=== PATIENT | male | born 1965 | race Caucasian/White ===

== ENCOUNTER 2016-09-09 17:30 | Inpatient (IN) | payer SELFPAY ==
--- NOTE | 2016-09-09 17:43 | DR.H&P ---
H&P - History & Physical for Day of: H&P Date: 09/09/16 - Chief Complaint Chief Complaint: right facial pain, redness and swelling after insect bite - Allergies Allergies/Adverse Reactions: Allergies Allergy/AdvReac Type Severity Reaction Status Date / Time No Known Drug Allergy Allergy Verified 04/06/16 14:52 - History of Present Illness History of Present Illness: the patient is a 51-year-old white male who was a direct admit from Dr. Benito's office after presenting with complaints of right cheek pain with redness and swelling onset 2 days. Patient stated onset of symptoms were after an insect bite. Patient complains of low-grade grade fever and headache nausea and vomiting which started today. plan to admit obtain labs, ct face, iv atbx therapy, pain and nausea control - Past Medical History Past Medical History: Diabetes, Hypothyroidism Additional Medical History: sarcoidosis - Past Surgical History Surgical History: Abdominal Surgery - Family History Family Medical History: Cancer - Social History Does patient currently use any type of tobacco product: No Have you used tobacco products in the last 12 months: No Type of Tobacco Use: None Does any household member use tobacco: No Alcohol Use: None Drug Use: None - Review of Systems Constitutional: Fever, Chills Eyes: denies: Pain, Vision Change, Conjunctivae Inflammation ENT: Ear Pain Respiratory: No Symptoms Reported Cardiovascular: No Symptoms Reported Gastrointestinal: Nausea, Vomiting Genitourinary: No Symptoms Reported Musculoskeletal: Back Pain, Leg Pain Skin: Wound (infected insect bite to right cheek) Neurological: No Symptoms Reported - Physical Exam Vital Signs: Blood Pressure [Left Arm] 129/78 Blood Pressure [Right Arm] 118/78 Blood Pressure 118/78 Oriented: Normal Eyes: Normal Ear: Right (mildly cloudy TM) Nose: Normal Throat: Normal Respiratory: RLL Diminished, LLL Diminished Cardiovascular: Normal Auscultation: Bowel Sounds: Normal Tenderness: Normal Skin: Red (3cm x 3 cm area of redness, firm mass with inrease warmth and severely tender), Tender, Hot Musculoskeletal: Back:Lumbar Psychiatric: Anxiety Speech Pattern: Clear, Appropriate - Assessment/Plan (1) Facial abscess Status: Acute Plan: facial cellulitis. admit, IV ATBX, BLOOD CULTURES CBC CMP ON ADMISSION. PAIN AND NAUSEA CONTROL. CT FACIAL BONES, BLOOD SUGAR CONTROL. REPEAT AM LABS (2) Diabetes mellitus, type 2 Qualifiers: Diabetes mellitus complication status: D Diabetes mellitus complication detail: D Diabetic retinopathy severity: D Proliferative retinopathy type: P Diabetes mellitus macular edema: D Diabetes mellitus residential insulin use : D Laterality: L Chronic kidney disease stage: C Status: Chronic (3) GERD (gastroesophageal reflux disease) Qualifiers: Esophagitis presence: with esophagitis Qualified Code(s): K21.0 - Gastro- esophageal reflux disease with esophagitis Status: Chronic (4) Sarcoidosis Status: Chronic
[2016-09-09 18:55] LABS: BASOPHILS % (AUTO) 0.4 % (0.2-1.0); EOSINOPHILS # (AUTO) 0.2 x10^3/uL (0.0-0.2); EOSINOPHILS % (AUTO) 2.4 % (0.9-2.9); HEMATOCRIT 42.5 % (42.0-54.0); HEMOGLOBIN 14.3 g/dL (13.5-18.0); LYMPHOCYTES # (AUTO) 1.4 X10^3/uL (1.3-2.9); LYMPHOCYTES % (AUTO) 22.3 % (21.0-51.0); MEAN CORPUSCULAR HEMOGLOBIN 30.4 pg (27.0-34.0); MEAN CORPUSCULAR HGB CONC 33.7 g/dL (33.0-35.0); MEAN CORPUSCULAR VOLUME 90.2 fL (80.0-100.0); MEAN PLATELET VOLUME 8.4 fL (7.4-11.0); MONOCYTES # (AUTO) 0.6 x10^3/uL (0.3-0.8); MONOCYTES % (AUTO) 9.7 % (0.0-13.0); NEUTROPHILS # (AUTO) 4.1 x10^3/uL (2.2-4.8); NEUTROPHILS % (AUTO) 65.2 % (42.0-75.0); PLATELET COUNT 159 X10^3/uL (150.0-450.0); RED BLOOD COUNT 4.71 X10^6/uL (4.7-6.0); RED CELL DISTRIBUTION WIDTH 14.2 % (11.6-16.5); WHITE BLOOD COUNT 6.3 X10^3/uL (3.6-10.0)
[2016-09-09 19:04] LABS: ALANINE AMINOTRANSFERASE 50 Units/L (12-78); ALBUMIN 3.9 g/dL (3.4-5.0); ALKALINE PHOSPHATASE 86 Units/L (46-116); ASPARTATE AMINO TRANSFERASE 25 Units/L (15-37); BLOOD UREA NITROGEN 12 mg/dL (7-18); CALCIUM 9.4 mg/dL (8.5-10.1); CARBON DIOXIDE 25.6 mmol/L (21-32); CHLORIDE 101 mmol/L (98-107); COR NA(FOR HYPERGLY) 140 mmol/L (136-145); CREATININE 1.03 mg/dL (0.70-1.30); GLUCOSE 272 mg/dL (65-99); SODIUM 136 mmol/L (136-145); TOTAL PROTEIN 8.1 g/dL (6.4-8.2); eGFR BLACK RACES > 60 (>60); eGFR NON BLACK RACES > 60 (>60)
[2016-09-09] MEDS: ROCEPHIN VIAL 1 GM 1 GM in NS 50 ML IV + SPIKE MINIBAG* 50 ML IV SCH (19:04)
[2016-09-09] MEDS: NS 1000 ML 1,000 ML IV SCH (19:04)
[2016-09-09] MEDS: PERCOCET TAB 5/325 MG PO PRN (19:52)
[2016-09-09] MEDS: CLEOCIN 300 MG IV PREMIX 300 MG/50 ML BAG IV SCH ×2 (20:00→23:50)
[2016-09-09] MEDS: SNACK - Diabetic Appropriate PO SCH (20:00)
[2016-09-09] MEDS ORDERED: NS 100 ML IV 100 ML IV ONE (20:44)
[2016-09-09] MEDS: HumuLIN R SUBCUT PRN (21:29)
--- NOTE | 2016-09-09 22:06 | CT ---
CT face with contrast Indication: Right cheek cellulitis, swelling after insect bite Comparison: CT neck 09/11/2015 Technique: CT images of the face were obtained after IV contrast administration. Automatic exposure control was utilized. Findings: There is focal skin thickening with underlying subcutaneous stranding of the right cheek. No discrete collection or significant deep tissue stranding is appreciated. No adenopathy appreciate d. The visualized portions of the brain are grossly unremarkable. The visualized paranasal sinuses and left-sided mastoid air cells are clear. There is patchy opacification of the right-sided mastoid air cells. The middle ears are clear. Impression: Cellulitis of the right cheek, without evidence for abscess. Patchy opacification of the right mastoid air cells. Correlation for mastoiditis recommended. Reported By:
[2016-09-10 02:11] LABS: BILIRUBIN,URINE NEGATIVE (NEGATIVE); BLOOD/HEMOGLOBIN,URINE NEGATIVE (NEGATIVE); GLUCOSE, URINE 4+ (NEGATIVE); KETONES,URINE NEGATIVE (NEGATIVE); LEUKOCYTE ESTERASE ,URINE NEGATIVE (NEGATIVE); NITRITES,URINE NEGATIVE (NEGATIVE); PROTEIN,URINE NEGATIVE (NEGATIVE); UROBILINOGEN,URINE NORMAL (NORMAL)
[2016-09-10 02:19] LABS: APPEARANCE,URINE CLEAR (CLEAR); BACTERIA,URINE NEGATIVE /HPF (NEGATIVE); COLOR,URINE YELLOW (YELLOW); RBC,URINE NONE SEEN /HPF (NEGATIVE); SQUAMOUS EPITHELIAL CELL,UR RARE /HPF (NEGATIVE)
[2016-09-10] MEDS: PERCOCET TAB 5/325 MG PO PRN ×4 (02:19→22:33)
[2016-09-10 05:20] LABS: BASOPHILS % (AUTO) 0.7 % (0.2-1.0); EOSINOPHILS # (AUTO) 0.2 x10^3/uL (0.0-0.2); EOSINOPHILS % (AUTO) 3.4 % (0.9-2.9); HEMATOCRIT 39.2 % (42.0-54.0); HEMOGLOBIN 13.3 g/dL (13.5-18.0); LYMPHOCYTES # (AUTO) 1.6 X10^3/uL (1.3-2.9); LYMPHOCYTES % (AUTO) 28.6 % (21.0-51.0); MEAN CORPUSCULAR HEMOGLOBIN 30.7 pg (27.0-34.0); MEAN CORPUSCULAR HGB CONC 33.9 g/dL (33.0-35.0); MEAN CORPUSCULAR VOLUME 90.5 fL (80.0-100.0); MEAN PLATELET VOLUME 8.8 fL (7.4-11.0); MONOCYTES # (AUTO) 0.5 x10^3/uL (0.3-0.8); MONOCYTES % (AUTO) 9.1 % (0.0-13.0); NEUTROPHILS # (AUTO) 3.2 x10^3/uL (2.2-4.8); NEUTROPHILS % (AUTO) 58.2 % (42.0-75.0); PLATELET COUNT 143 X10^3/uL (150.0-450.0); RED BLOOD COUNT 4.33 X10^6/uL (4.7-6.0); RED CELL DISTRIBUTION WIDTH 14.1 % (11.6-16.5); WHITE BLOOD COUNT 5.5 X10^3/uL (3.6-10.0)
[2016-09-10 05:24] LABS: ALBUMIN 3.3 g/dL (3.4-5.0); ALKALINE PHOSPHATASE 76 Units/L (46-116); BLOOD UREA NITROGEN 15 mg/dL (7-18); CALCIUM 8.5 mg/dL (8.5-10.1); CARBON DIOXIDE 26.2 mmol/L (21-32); CHLORIDE 100 mmol/L (98-107); COR CA(FOR HYPOALB) 9.1 mg/dL (8.5-10.1); COR NA(FOR HYPERGLY) 141 mmol/L (136-145); CREATININE 1.11 mg/dL (0.70-1.30); GLUCOSE 296 mg/dL (65-99); SODIUM 136 mmol/L (136-145); TOTAL PROTEIN 7.1 g/dL (6.4-8.2); eGFR BLACK RACES > 60 (>60); eGFR NON BLACK RACES > 60 (>60)
[2016-09-10 05:56] LABS: ALANINE AMINOTRANSFERASE 46 Units/L (12-78); ASPARTATE AMINO TRANSFERASE 24 Units/L (15-37)
[2016-09-10] MEDS: HumuLIN R SUBCUT PRN ×4 (06:21→21:16)
[2016-09-10] MEDS: CLEOCIN 300 MG IV PREMIX 300 MG/50 ML BAG IV SCH ×3 (06:21→21:11)
[2016-09-10] MEDS: ROCEPHIN VIAL 1 GM 1 GM in NS 50 ML IV + SPIKE MINIBAG* 50 ML IV SCH (09:04)
[2016-09-10] MEDS: NS 1000 ML 1,000 ML IV SCH ×2 (11:23→23:19)
--- NOTE | 2016-09-10 13:13 | PCM.PROG ---
Progress Note - Progress Note for Day of Date: 09/10/16 - Subjective Subjective: redness and swelling improving to right side of face. pt co itching. plan to continue iv atbx for 24 hrs then d/c home on po antibiotics - Past Medical Family Social History Past Med/Fam/Surg Hx: No changes since H&P Allergies: Allergies No Known Drug Allergy Allergy (Verified 04/06/16 14:52) - Review of Systems ROS: No change since H&P - Vital Signs and I&O's Vital Signs: Temperature 98.2 F Pulse Rate [Left Brachial] 61 Respiratory Rate 20 Blood Pressure [Left Arm] 121/83 Blood Pressure [Right Arm] 118/78 Blood Pressure 118/78 O2 Sat by Pulse Oximetry 93 Intake and Output: Intake & Output 09/08/16 09/09/16 09/10/16 09/11/16 11:59 11:59 11:59 11:59 Intake Total 3790 Balance 3790 - Physical Exam Oriented: Normal Eyes: Normal Ear: Right (mildly cloudy TM) Nose: Normal Throat: Normal Cardiovascular: Normal Auscultation: Bowel Sounds: Normal Tenderness: Normal Skin: Red (3cm x 3 cm area of redness, firm mass with inrease warmth and severely tender), Tender, Hot Musculoskeletal: Back:Lumbar Psychiatric: Anxiety Speech Pattern: Clear, Appropriate - Laboratory and Diagnostics Result Diagrams: 09/10/16 03:40 09/10/16 03:40 Labs: Laboratory WBC 5.5 X10^3/uL (3.6-10.0) 09/10/16 03:40 RBC 4.33 X10^6/uL (4.7-6.0) L 09/10/16 03:40 Hgb 13.3 g/dL (13.5-18.0) L 09/10/16 03:40 Hct 39.2 % (42.0-54.0) L 09/10/16 03:40 MCV 90.5 fL (80.0-100.0) 09/10/16 03:40 MCH 30.7 pg (27.0-34.0) 09/10/16 03:40 MCHC 33.9 g/dL (33.0-35.0) 09/10/16 03:40 RDW 14.1 % (11.6-16.5) 09/10/16 03:40 Plt Count 143 X10^3/uL (150.0-450.0) L 09/10/16 03:40 MPV 8.8 fL (7.4-11.0) 09/10/16 03:40 Neut % 58.2 % (42.0-75.0) 09/10/16 03:40 Lymph % 28.6 % (21.0-51.0) 09/10/16 03:40 [place] % 9.1 % (0.0-13.0) 09/10/16 03:40 Eos % 3.4 % (0.9-2.9) H 09/10/16 03:40 Baso % 0.7 % (0.2-1.0) 09/10/16 03:40 Neut # 3.2 x10^3/uL (2.2-4.8) 09/10/16 03:40 Lymph # 1.6 X10^3/uL (1.3-2.9) 09/10/16 03:40 [place] # 0.5 x10^3/uL (0.3-0.8) 09/10/16 03:40 Eos # 0.2 x10^3/uL (0.0-0.2) 09/10/16 03:40 Baso # 0.0 X10^3/uL (0.0-0.1) 09/10/16 03:40 Absolute Nucleated RBC 0.1 /100WBC 09/10/16 03:40 Sodium 136 mmol/L (136-145) 09/10/16 03:40 Corrected Sodium 141 mmol/L (136-145) 09/10/16 03:40 Potassium 3.9 mmol/L (3.5-5.1) 09/10/16 03:40 Chloride 100 mmol/L (98-107) 09/10/16 03:40 Carbon Dioxide 26.2 mmol/L (21-32) 09/10/16 03:40 BUN 15 mg/dL (7-18) 09/10/16 03:40 Creatinine 1.11 mg/dL (0.70-1.30) 09/10/16 03:40 Est GFR (MDRD) Af Amer > 60 (>60) 09/10/16 03:40 Est GFR (MDRD) Non-Af > 60 (>60) 09/10/16 03:40 Glucose 296 mg/dL (65-99) H 09/10/16 03:40 Calcium 8.5 mg/dL (8.5-10.1) 09/10/16 03:40 Corrected Calcium 9.1 mg/dL (8.5-10.1) 09/10/16 03:40 Total Bilirubin 0.40 mg/dL (0.2-1.0) 09/10/16 03:40 AST 24 Units/L (15-37) 09/10/16 03:40 ALT 46 Units/L (12-78) 09/10/16 03:40 Alkaline Phosphatase 76 Units/L (46-116) 09/10/16 03:40 Total Protein 7.1 g/dL (6.4-8.2) 09/10/16 03:40 Albumin 3.3 g/dL (3.4-5.0) L 09/10/16 03:40 Globulin 3.8 g/dL (2.5-4.5) 09/10/16 03:40 Albumin/Globulin Ratio 0.9 Ratio (1.1-2.1) L 09/10/16 03:40 Specimen Type Clean catch urine 09/10/16 02:01 Urine Color Yellow (YELLOW) 09/10/16 02:01 Urine Appearance Clear (CLEAR) 09/10/16 02:01 Urine pH 5.0 (5.0 - 8.0) 09/10/16 02:01 Ur Specific [place] 1.015 (1.000-1.030) 09/10/16 02:01 Urine Protein Negative (NEGATIVE) 09/10/16 02:01 Urine Glucose (UA) 4+ (NEGATIVE) 09/10/16 02:01 Urine Ketones Negative (NEGATIVE) 09/10/16 02:01 Urine Occult Blood Negative (NEGATIVE) 09/10/16 02:01 Urine Nitrite Negative (NEGATIVE) 09/10/16 02:01 Urine Bilirubin Negative (NEGATIVE) 09/10/16 02:01 Urine Urobilinogen Normal (NORMAL) 09/10/16 02:01 Ur Leukocyte Esterase Negative (NEGATIVE) 09/10/16 02:01 Urine RBC None seen /HPF (NEGATIVE) 09/10/16 02:01 Urine WBC None seen /HPF (NEGATIVE) 09/10/16 02:01 Ur Squamous Epith Cells Rare /HPF (NEGATIVE) 09/10/16 02:01 Urine Bacteria Negative /HPF (NEGATIVE) 09/10/16 02:01 Ur Culture Indicated? No/not indicated 09/10/16 02:01 - Plan (1) Facial abscess Status: Acute Plan: continue IV atbx, repeat am labs. cultures pending, overall improving cellulitis (2) Diabetes mellitus, type 2 Status: Chronic Qualifiers: Diabetes mellitus complication status: D Diabetes mellitus complication detail: D Diabetic retinopathy severity: D Proliferative retinopathy type: P Diabetes mellitus macular edema: D Diabetes mellitus exterminator termite insulin use : D Laterality: L Chronic kidney disease stage: C (3) GERD (gastroesophageal reflux disease) Status: Chronic Qualifiers: Esophagitis presence: with esophagitis Qualified Code(s): K21.0 - Gastro- esophageal reflux disease with esophagitis (4) Sarcoidosis Status: Chronic
[2016-09-10] MEDS: VISTARIL PO PRN (13:41)
[2016-09-10] MEDS: SNACK - Diabetic Appropriate PO SCH (21:22)
[2016-09-11 05:51] LABS: BASOPHILS % (AUTO) 0.7 % (0.2-1.0); EOSINOPHILS # (AUTO) 0.2 x10^3/uL (0.0-0.2); EOSINOPHILS % (AUTO) 3.7 % (0.9-2.9); HEMATOCRIT 39.7 % (42.0-54.0); HEMOGLOBIN 13.3 g/dL (13.5-18.0); LYMPHOCYTES # (AUTO) 1.7 X10^3/uL (1.3-2.9); LYMPHOCYTES % (AUTO) 29.9 % (21.0-51.0); MEAN CORPUSCULAR HEMOGLOBIN 30.2 pg (27.0-34.0); MEAN CORPUSCULAR HGB CONC 33.6 g/dL (33.0-35.0); MEAN PLATELET VOLUME 8.6 fL (7.4-11.0); MONOCYTES # (AUTO) 0.5 x10^3/uL (0.3-0.8); MONOCYTES % (AUTO) 8.7 % (0.0-13.0); NEUTROPHILS # (AUTO) 3.2 x10^3/uL (2.2-4.8); PLATELET COUNT 162 X10^3/uL (150.0-450.0); RED BLOOD COUNT 4.41 X10^6/uL (4.7-6.0); RED CELL DISTRIBUTION WIDTH 13.9 % (11.6-16.5); WHITE BLOOD COUNT 5.6 X10^3/uL (3.6-10.0)
[2016-09-11 05:56] LABS: ALANINE AMINOTRANSFERASE 31 Units/L (12-78); ALBUMIN 3.2 g/dL (3.4-5.0); ALKALINE PHOSPHATASE 78 Units/L (46-116); ASPARTATE AMINO TRANSFERASE 15 Units/L (15-37); BLOOD UREA NITROGEN 14 mg/dL (7-18); CALCIUM 8.4 mg/dL (8.5-10.1); CARBON DIOXIDE 23.2 mmol/L (21-32); CHLORIDE 103 mmol/L (98-107); COR NA(FOR HYPERGLY) 141 mmol/L (136-145); CREATININE 1.07 mg/dL (0.70-1.30); GLUCOSE 256 mg/dL (65-99); SODIUM 137 mmol/L (136-145); TOTAL PROTEIN 7.2 g/dL (6.4-8.2); eGFR BLACK RACES > 60 (>60); eGFR NON BLACK RACES > 60 (>60)
[2016-09-11] MEDS: CLEOCIN 300 MG IV PREMIX 300 MG/50 ML BAG IV SCH ×2 (06:01→14:30)
[2016-09-11] MEDS: HumuLIN R SUBCUT PRN ×3 (06:45→20:59)
[2016-09-11] MEDS: PERCOCET TAB 5/325 MG PO PRN ×3 (08:58→21:44)
[2016-09-11] MEDS: ROCEPHIN VIAL 1 GM 1 GM in NS 50 ML IV + SPIKE MINIBAG* 50 ML IV SCH (08:58)
[2016-09-11] MEDS ORDERED: LEVAQUIN PREMIX IV 750 MG 750 MG/150 ML BAG IV ONE (09:27)
[2016-09-11] MEDS ORDERED: DEMEROL INJ IVP ONE (11:02)
--- NOTE | 2016-09-11 12:21 | PCM.DCPLAN ---
Addendum entered and electronically signed by ADELAIDE ARCHER 09/13/16 12:55: cancel /dc summary pt condition worsened and pt continue with inpt stay Original Note: Discharge Summary - Admission Date Date of Admission: 09/09/16 - Discharge Date Discharge Date: 09/11/16 - Admission Diagnoses (1) Facial abscess Status: Acute (2) Diabetes mellitus, type 2 Status: Chronic (3) GERD (gastroesophageal reflux disease) Status: Chronic (4) Sarcoidosis Status: Chronic - Discharge Diagnoses Discharge Diagnosis: SAME ADMISSION - Discharge Medications Discharge Medications: Cephalexin [Keflex Cap 500 mg] 500 mg PO BID #20 cap 09/11/16 [Rx] Sulfamethoxazole-Trimethoprim [BACTRIM DS TAB 800/160 MG *] 1 tab PO BID #20 tab 09/11/16 [Rx] - Hospital Course Vital Signs: Temperature 97.2 F Pulse Rate [Left Brachial] 64 Respiratory Rate 20 Blood Pressure [Left Arm] 129/77 Blood Pressure [Right Arm] 118/78 Blood Pressure 118/78 O2 Sat by Pulse Oximetry 94 Latest Lab Results: Laboratory Last Values WBC 5.6 X10^3/uL (3.6-10.0) 09/11/16 05:00 RBC 4.41 X10^6/uL (4.7-6.0) L 09/11/16 05:00 Hgb 13.3 g/dL (13.5-18.0) L 09/11/16 05:00 Hct 39.7 % (42.0-54.0) L 09/11/16 05:00 MCV 90.0 fL (80.0-100.0) 09/11/16 05:00 MCH 30.2 pg (27.0-34.0) 09/11/16 05:00 MCHC 33.6 g/dL (33.0-35.0) 09/11/16 05:00 RDW 13.9 % (11.6-16.5) 09/11/16 05:00 Plt Count 162 X10^3/uL (150.0-450.0) 09/11/16 05:00 MPV 8.6 fL (7.4-11.0) 09/11/16 05:00 Neut % 57.0 % (42.0-75.0) 09/11/16 05:00 Lymph % 29.9 % (21.0-51.0) 09/11/16 05:00 [place] % 8.7 % (0.0-13.0) 09/11/16 05:00 Eos % 3.7 % (0.9-2.9) H 09/11/16 05:00 Baso % 0.7 % (0.2-1.0) 09/11/16 05:00 Neut # 3.2 x10^3/uL (2.2-4.8) 09/11/16 05:00 Lymph # 1.7 X10^3/uL (1.3-2.9) 09/11/16 05:00 [place] # 0.5 x10^3/uL (0.3-0.8) 09/11/16 05:00 Eos # 0.2 x10^3/uL (0.0-0.2) 09/11/16 05:00 Baso # 0.0 X10^3/uL (0.0-0.1) 09/11/16 05:00 Absolute Nucleated RBC 0.1 /100WBC 09/11/16 05:00 Sodium 137 mmol/L (136-145) 09/11/16 05:00 Corrected Sodium 141 mmol/L (136-145) 09/11/16 05:00 Potassium 4.1 mmol/L (3.5-5.1) 09/11/16 05:00 Chloride 103 mmol/L (98-107) 09/11/16 05:00 Carbon Dioxide 23.2 mmol/L (21-32) 09/11/16 05:00 BUN 14 mg/dL (7-18) 09/11/16 05:00 Creatinine 1.07 mg/dL (0.70-1.30) 09/11/16 05:00 Est GFR (MDRD) Af Amer > 60 (>60) 09/11/16 05:00 Est GFR (MDRD) Non-Af > 60 (>60) 09/11/16 05:00 Glucose 256 mg/dL (65-99) H 09/11/16 05:00 Calcium 8.4 mg/dL (8.5-10.1) L 09/11/16 05:00 Corrected Calcium 9.0 mg/dL (8.5-10.1) 09/11/16 05:00 Total Bilirubin 0.30 mg/dL (0.2-1.0) 09/11/16 05:00 AST 15 Units/L (15-37) 09/11/16 05:00 ALT 31 Units/L (12-78) 09/11/16 05:00 Alkaline Phosphatase 78 Units/L (46-116) 09/11/16 05:00 Total Protein 7.2 g/dL (6.4-8.2) 09/11/16 05:00 Albumin 3.2 g/dL (3.4-5.0) L 09/11/16 05:00 Globulin 4.0 g/dL (2.5-4.5) 09/11/16 05:00 Albumin/Globulin Ratio 0.8 Ratio (1.1-2.1) L 09/11/16 05:00 Specimen Type Clean catch urine 09/10/16 02:01 Urine Color Yellow (YELLOW) 09/10/16 02:01 Urine Appearance Clear (CLEAR) 09/10/16 02:01 Urine pH 5.0 (5.0 - 8.0) 09/10/16 02:01 Ur Specific [place] 1.015 (1.000-1.030) 09/10/16 02:01 Urine Protein Negative (NEGATIVE) 09/10/16 02:01 Urine Glucose (UA) 4+ (NEGATIVE) 09/10/16 02:01 Urine Ketones Negative (NEGATIVE) 09/10/16 02:01 Urine Occult Blood Negative (NEGATIVE) 09/10/16 02:01 Urine Nitrite Negative (NEGATIVE) 09/10/16 02:01 Urine Bilirubin Negative (NEGATIVE) 09/10/16 02:01 Urine Urobilinogen Normal (NORMAL) 09/10/16 02:01 Ur Leukocyte Esterase Negative (NEGATIVE) 09/10/16 02:01 Urine RBC None seen /HPF (NEGATIVE) 09/10/16 02:01 Urine WBC None seen /HPF (NEGATIVE) 09/10/16 02:01 Ur Squamous Epith Cells Rare /HPF (NEGATIVE) 09/10/16 02:01 Urine Bacteria Negative /HPF (NEGATIVE) 09/10/16 02:01 Ur Culture Indicated? No/not indicated 09/10/16 02:01 Hospital Course: PATIENT IS A 51-YEAR-OLD WHITE MALE WITH A HISTORY OF DIABETES HIGH BLOOD PRESSURE AND SARCOIDOSIS THAT WAS ADMITTED ON friday FROM [facility]. [facility] OFFICE. pATIENT HAD NEW COMPLAINTS OF RIGHT CHEEK/FACIAL REDNESS AND SWELLING AFTER INSECT BITE. pATIENT WAS ADMITTED WITH ADMISSION LABS BLOOD CULTURES AND ct OF THE FACE WHICH REVEALED NO LOCALIZED ABSCESS, ACUTE RIGHT MAXILLARY SINUSITIS. pATIENT PATIENT WAS TREATED WITH iv CLINDAMYCIN AND rOCEPHIN WITH IMPROVEMENT OF REDNESS AND IMPROVEMENT OF SWELLING BUT NOT COMPLETELY RESOLVED TODAY. dUE TO AFEBRILE STATUS STABLE WHITE BLOOD COUNT AND IMPROVED REDNESS PLAN TO DISCHARGE PATIENT HOME TO RESUME HOME MEDICATION pAo2 bACTRIM AND kEFLEX. pATIENT STRAIGHT TO FOLLOW A LOW-CARB DIET AND STRICT SUGAR MONITORING. pATIENT INSTRUCTED TO HAVE GOOD HYGIENE AND AND RETURN TO OFFICE IF PATIENT DEVELOPS A FEVER OR ANY CHANGE OR WORSENING SYMPTOMS. pATIENT CURRENTLY HAS A PRESCRIPTION FOR PAIN MEDICATION AT HOME AND INSTRUCTED TO CONTINUE THAT. pATIENT IS TO SEE PRIMARY CARE IN OFFICE IN 1 WEEK. pATIENT DID RECEIVE A DOSE OF lEVAQUIN 750 iv THIS MORNING PRIOR TO DISCHARGE. - Discharge Plan Disposition: HOME, SELF-CARE Condition: Stable Prescriptions: Cephalexin [Keflex Cap 500 mg] 500 mg PO BID #20 cap Sulfamethoxazole-Trimethoprim [BACTRIM DS TAB 800/160 MG *] 1 tab PO BID #20 tab - Follow ups/Referrals Follow ups/Referrals: ADELAIDE ARCHER [Primary Care Provider] - 09/16/16 2:45 pm - Instructions Instructions: Type 2 Diabetes Mellitus, Adult, Form - Daily Diabetes Record, Wound Check, Cellulitis, [id number], Cephalexin tablets or capsules, Sulfamethoxazole; Trimethoprim, SMX-[id number] tablets Additional Instructions: warm compress to affected area continue po antibiotics use antibacterial soap follow up with dr georges in one week strict low carb diet and blood sugar control Forms: Patient Portal
[2016-09-11] MEDS ORDERED: ZOSYN VIAL 4.5 GM IV SCH (15:25)
[2016-09-11] MEDS: NS 1000 ML 1,000 ML IV SCH (15:49)
[2016-09-11] MEDS ORDERED: NS 100 ML IV + SPIKE MINIBAG* 100 ML IV ONE (15:54)
[2016-09-11] MEDS ORDERED: CONSULT PHARMACY - ANTIBIOTIC XX SCH (17:00)
[2016-09-11] MEDS ORDERED: NS 100 ML IV 100 ML IV ONE (17:25)
--- NOTE | 2016-09-11 17:56 | CT ---
CT face with contrast Indication: Facial swelling Comparison: CT face with contrast 09/09/2016 Technique: CT images of the face were obtained after IV contrast administration. Automatic exposure control was utilized. Findings: Skin thickening with associated subcutaneous stranding of the right cheek appears mildly w orsened. There is no discrete collection to suggest abscess. There is no significant deep soft tissu e edema. No adenopathy identified. The major paranasal sinuses are clear. Patchy right mastoid air cell opacification is unchanged. The visualized brain demonstrates no significant abnormality. The jugular veins and carotid arteries ar e patent. Impression: 1. Mildly worsened right-sided facial cellulitis without evidence for abscess. 2. Patchy right mastoid air cell opacification, unchanged. Reported By:
[2016-09-11] MEDS: MORPHINE SULFATE INJ 2 MG IVP PRN (19:29)
[2016-09-11] MEDS ORDERED: VANCOMYCIN HCL 1 GM VIAL IV SCH (21:00)
[2016-09-11] MEDS ORDERED: VANCOMYCIN 1 GM IV SCH (21:00)
[2016-09-11] MEDS: SNACK - Diabetic Appropriate PO SCH (21:05)
[2016-09-11] MEDS: LACTINEX GRANULES PO SCH (21:05)
[2016-09-11] MEDS: AMBIEN PO PRN (21:39)
[2016-09-11] MEDS: CLEOCIN VIAL 600 MG 900 MG in D5W 50 ML IV 50 ML IV SCH (22:55)
[2016-09-12] MEDS: MAXIPIME 2 GM in NS 100 ML IV + SPIKE MINIBAG* 100 ML IV SCH ×4 (00:40→21:25)
[2016-09-12] MEDS: CLEOCIN VIAL 600 MG 900 MG in D5W 50 ML IV 50 ML IV SCH ×2 (04:37→13:59)
[2016-09-12] MEDS: MORPHINE SULFATE INJ 2 MG IVP PRN ×4 (04:41→22:15)
[2016-09-12] MEDS: NS 1000 ML 1,000 ML IV SCH ×2 (04:48→18:11)
[2016-09-12 05:20] LABS: EOSINOPHILS # (AUTO) 0.2 x10^3/uL (0.0-0.2); HEMOGLOBIN 12.6 g/dL (13.5-18.0); LYMPHOCYTES # (AUTO) 1.4 X10^3/uL (1.3-2.9); LYMPHOCYTES % (AUTO) 33.9 % (21.0-51.0); MEAN CORPUSCULAR HEMOGLOBIN 30.4 pg (27.0-34.0); MEAN CORPUSCULAR VOLUME 89.3 fL (80.0-100.0); MEAN PLATELET VOLUME 8.5 fL (7.4-11.0); MONOCYTES # (AUTO) 0.4 x10^3/uL (0.3-0.8); MONOCYTES % (AUTO) 10.3 % (0.0-13.0); NEUTROPHILS # (AUTO) 2.1 x10^3/uL (2.2-4.8); NEUTROPHILS % (AUTO) 49.8 % (42.0-75.0); PLATELET COUNT 155 X10^3/uL (150.0-450.0); RED BLOOD COUNT 4.15 X10^6/uL (4.7-6.0); RED CELL DISTRIBUTION WIDTH 14.2 % (11.6-16.5); WHITE BLOOD COUNT 4.2 X10^3/uL (3.6-10.0)
[2016-09-12 05:36] LABS: ALANINE AMINOTRANSFERASE 33 Units/L (12-78); ALKALINE PHOSPHATASE 75 Units/L (46-116); BLOOD UREA NITROGEN 14 mg/dL (7-18); CALCIUM 8.3 mg/dL (8.5-10.1); CARBON DIOXIDE 23.8 mmol/L (21-32); CHLORIDE 103 mmol/L (98-107); COR CA(FOR HYPOALB) 9.1 mg/dL (8.5-10.1); COR NA(FOR HYPERGLY) 140 mmol/L (136-145); GLUCOSE 233 mg/dL (65-99); SODIUM 137 mmol/L (136-145); TOTAL PROTEIN 6.9 g/dL (6.4-8.2); eGFR BLACK RACES > 60 (>60); eGFR NON BLACK RACES > 60 (>60)
[2016-09-12] MEDS: LACTINEX GRANULES PO SCH ×3 (05:47→21:25)
[2016-09-12] MEDS: HumuLIN R SUBCUT PRN ×4 (05:51→21:30)
[2016-09-12 05:53] LABS: ASPARTATE AMINO TRANSFERASE 25 Units/L (15-37)
[2016-09-12] MEDS ORDERED: GLUCOPHAGE PO SCH (09:00)
[2016-09-12 09:44] VITALS: BMI 34.4
[2016-09-12] MEDS: PERCOCET TAB 5/325 MG PO PRN ×2 (10:22→21:26)
[2016-09-12] MEDS: NS IV SCH ×2 (10:22→21:28)
[2016-09-12] MEDS: VANCOMYCIN HCL IV SCH ×2 (10:22→21:28)
[2016-09-12] MEDS ORDERED: LEVEMIR SC ONE (11:00)
[2016-09-12] MEDS: NORCO 10/325 TAB PO PRN (15:54)
[2016-09-12] MEDS: REGLAN TAB 10 MG PO SCH (15:55)
[2016-09-12] MEDS: VISTARIL PO PRN (21:24)
[2016-09-12] MEDS: SNACK - Diabetic Appropriate PO SCH (21:26)
[2016-09-12] MEDS: AMBIEN PO PRN (21:26)
[2016-09-12] MEDS: LEVEMIR SC SCH (21:29)
[2016-09-13] MEDS: CLEOCIN VIAL 600 MG 900 MG in D5W 50 ML IV 50 ML IV SCH ×4 (00:21→21:14)
[2016-09-13 06:16] LABS: ALANINE AMINOTRANSFERASE 36 Units/L (12-78); ALBUMIN 3.1 g/dL (3.4-5.0); ALKALINE PHOSPHATASE 72 Units/L (46-116); ASPARTATE AMINO TRANSFERASE 17 Units/L (15-37); BLOOD UREA NITROGEN 12 mg/dL (7-18); CALCIUM 8.6 mg/dL (8.5-10.1); CARBON DIOXIDE 23.6 mmol/L (21-32); CHLORIDE 105 mmol/L (98-107); COR CA(FOR HYPOALB) 9.3 mg/dL (8.5-10.1); COR NA(FOR HYPERGLY) 142 mmol/L (136-145); CREATININE 0.93 mg/dL (0.70-1.30); GLUCOSE 184 mg/dL (65-99); SODIUM 140 mmol/L (136-145); TOTAL PROTEIN 6.8 g/dL (6.4-8.2); eGFR BLACK RACES > 60 (>60); eGFR NON BLACK RACES > 60 (>60)
[2016-09-13] MEDS: LACTINEX GRANULES PO SCH ×3 (06:21→21:16)
[2016-09-13] MEDS: MAXIPIME 2 GM in NS 100 ML IV + SPIKE MINIBAG* 100 ML IV SCH ×4 (06:22→21:10)
[2016-09-13 06:25] LABS: BASOPHILS % (AUTO) 1.2 % (0.2-1.0); EOSINOPHILS # (AUTO) 0.2 x10^3/uL (0.0-0.2); EOSINOPHILS % (AUTO) 5.4 % (0.9-2.9); HEMATOCRIT 37.1 % (42.0-54.0); HEMOGLOBIN 12.6 g/dL (13.5-18.0); LYMPHOCYTES # (AUTO) 1.5 X10^3/uL (1.3-2.9); LYMPHOCYTES % (AUTO) 43.1 % (21.0-51.0); MEAN CORPUSCULAR HEMOGLOBIN 30.3 pg (27.0-34.0); MEAN CORPUSCULAR VOLUME 88.9 fL (80.0-100.0); MEAN PLATELET VOLUME 8.6 fL (7.4-11.0); MONOCYTES # (AUTO) 0.3 x10^3/uL (0.3-0.8); MONOCYTES % (AUTO) 8.8 % (0.0-13.0); NEUTROPHILS # (AUTO) 1.5 x10^3/uL (2.2-4.8); NEUTROPHILS % (AUTO) 41.5 % (42.0-75.0); PLATELET COUNT 156 X10^3/uL (150.0-450.0); RED BLOOD COUNT 4.17 X10^6/uL (4.7-6.0); RED CELL DISTRIBUTION WIDTH 14.2 % (11.6-16.5); WHITE BLOOD COUNT 3.6 X10^3/uL (3.6-10.0)
[2016-09-13] MEDS: VANCOMYCIN HCL IV SCH ×2 (09:07→22:33)
[2016-09-13] MEDS: NS IV SCH ×2 (09:07→22:33)
[2016-09-13] MEDS: MORPHINE SULFATE INJ 2 MG IVP PRN (09:28)
[2016-09-13] MEDS: HumuLIN R SUBCUT PRN ×3 (12:32→21:19)
[2016-09-13] MEDS: NORCO 10/325 TAB PO PRN (12:32)
[2016-09-13] MEDS ORDERED: DEMEROL INJ IVP PRN (12:57)
[2016-09-13] MEDS ORDERED: MILK OF MAGNESIA PO PRN (12:58)
[2016-09-13] MEDS ORDERED: NORCO 10/325 TAB PO PRN (12:59)
[2016-09-13] MEDS ORDERED: TORADOL 15 MG VIAL IVP PRN (13:00)
--- NOTE | 2016-09-13 13:00 | PCM.PROG ---
Progress Note - Progress Note for Day of Date: 09/13/16 - Subjective Subjective: redness and swelling improving to right side of face. pt on vancomycin, cefepime and clindamycin. plan to continue pain control, repeat am labs - Past Medical Family Social History Past Med/Fam/Surg Hx: No changes since H&P Allergies: Allergies No Known Drug Allergy Allergy (Verified 04/06/16 14:52) - Review of Systems ROS: No change since H&P - Vital Signs and I&O's Vital Signs: Temperature 98.2 F Pulse Rate [Left Brachial] 50 Respiratory Rate 20 Blood Pressure [Left Arm] 111/59 Blood Pressure [Right Arm] 118/78 Blood Pressure 118/78 O2 Sat by Pulse Oximetry 94 Intake and Output: Intake & Output 09/11/16 09/12/16 09/13/16 09/14/16 11:59 11:59 11:59 11:59 Intake Total 5240 1520 2506 Balance 5240 1520 2506 - Physical Exam Oriented: Normal Eyes: Normal Ear: Right (mildly cloudy TM) Nose: Normal Throat: Normal Respiratory: Normal Cardiovascular: Normal Auscultation: Bowel Sounds: Normal Tenderness: Normal Skin: Red (3cm x 3 cm area of redness, firm mass with inrease warmth and severely tender), Tender, Hot Musculoskeletal: Back:Lumbar Psychiatric: Anxiety Speech Pattern: Clear, Appropriate - Laboratory and Diagnostics Result Diagrams: 09/13/16 04:40 09/13/16 04:40 Labs: 09/11/16 19:40 Blood Blood Culture - Preliminary 09/11/16 19:45 Blood Blood Culture - Preliminary 09/09/16 18:35 Blood Blood Culture - Preliminary 09/09/16 18:30 Blood Blood Culture - Preliminary Laboratory WBC 3.6 X10^3/uL (3.6-10.0) 09/13/16 04:40 RBC 4.17 X10^6/uL (4.7-6.0) L 09/13/16 04:40 Hgb 12.6 g/dL (13.5-18.0) L 09/13/16 04:40 Hct 37.1 % (42.0-54.0) L 09/13/16 04:40 MCV 88.9 fL (80.0-100.0) 09/13/16 04:40 MCH 30.3 pg (27.0-34.0) 09/13/16 04:40 MCHC 34.0 g/dL (33.0-35.0) 09/13/16 04:40 RDW 14.2 % (11.6-16.5) 09/13/16 04:40 Plt Count 156 X10^3/uL (150.0-450.0) 09/13/16 04:40 MPV 8.6 fL (7.4-11.0) 09/13/16 04:40 Neut % 41.5 % (42.0-75.0) L 09/13/16 04:40 Lymph % 43.1 % (21.0-51.0) 09/13/16 04:40 [place] % 8.8 % (0.0-13.0) 09/13/16 04:40 Eos % 5.4 % (0.9-2.9) H 09/13/16 04:40 Baso % 1.2 % (0.2-1.0) H 09/13/16 04:40 Neut # 1.5 x10^3/uL (2.2-4.8) L 09/13/16 04:40 Lymph # 1.5 X10^3/uL (1.3-2.9) 09/13/16 04:40 [place] # 0.3 x10^3/uL (0.3-0.8) 09/13/16 04:40 Eos # 0.2 x10^3/uL (0.0-0.2) 09/13/16 04:40 Baso # 0.0 X10^3/uL (0.0-0.1) 09/13/16 04:40 Absolute Nucleated RBC 0.2 /100WBC 09/13/16 04:40 Sodium 140 mmol/L (136-145) 09/13/16 04:40 Corrected Sodium 142 mmol/L (136-145) 09/13/16 04:40 Potassium 4.1 mmol/L (3.5-5.1) 09/13/16 04:40 Chloride 105 mmol/L (98-107) 09/13/16 04:40 Carbon Dioxide 23.6 mmol/L (21-32) 09/13/16 04:40 BUN 12 mg/dL (7-18) 09/13/16 04:40 Creatinine 0.93 mg/dL (0.70-1.30) 09/13/16 04:40 Est GFR (MDRD) Af Amer > 60 (>60) 09/13/16 04:40 Est GFR (MDRD) Non-Af > 60 (>60) 09/13/16 04:40 Glucose 184 mg/dL (65-99) H 09/13/16 04:40 Calcium 8.6 mg/dL (8.5-10.1) 09/13/16 04:40 Corrected Calcium 9.3 mg/dL (8.5-10.1) 09/13/16 04:40 Total Bilirubin 0.30 mg/dL (0.2-1.0) 09/13/16 04:40 AST 17 Units/L (15-37) 09/13/16 04:40 ALT 36 Units/L (12-78) 09/13/16 04:40 Alkaline Phosphatase 72 Units/L (46-116) 09/13/16 04:40 Total Protein 6.8 g/dL (6.4-8.2) 09/13/16 04:40 Albumin 3.1 g/dL (3.4-5.0) L 09/13/16 04:40 Globulin 3.7 g/dL (2.5-4.5) 09/13/16 04:40 Albumin/Globulin Ratio 0.8 Ratio (1.1-2.1) L 09/13/16 04:40 Specimen Type Clean catch urine 09/10/16 02:01 Urine Color Yellow (YELLOW) 09/10/16 02:01 Urine Appearance Clear (CLEAR) 09/10/16 02:01 Urine pH 5.0 (5.0 - 8.0) 09/10/16 02:01 Ur Specific [place] 1.015 (1.000-1.030) 09/10/16 02:01 Urine Protein Negative (NEGATIVE) 09/10/16 02:01 Urine Glucose (UA) 4+ (NEGATIVE) 09/10/16 02:01 Urine Ketones Negative (NEGATIVE) 09/10/16 02:01 Urine Occult Blood Negative (NEGATIVE) 09/10/16 02:01 Urine Nitrite Negative (NEGATIVE) 09/10/16 02:01 Urine Bilirubin Negative (NEGATIVE) 09/10/16 02:01 Urine Urobilinogen Normal (NORMAL) 09/10/16 02:01 Ur Leukocyte Esterase Negative (NEGATIVE) 09/10/16 02:01 Urine RBC None seen /HPF (NEGATIVE) 09/10/16 02:01 Urine WBC None seen /HPF (NEGATIVE) 09/10/16 02:01 Ur Squamous Epith Cells Rare /HPF (NEGATIVE) 09/10/16 02:01 Urine Bacteria Negative /HPF (NEGATIVE) 09/10/16 02:01 Ur Culture Indicated? No/not indicated 09/10/16 02:01 - Plan (1) Facial abscess Status: Acute Plan: continue IV atbx, repeat am labs, repeat. cultures pending, overall improving cellulitis (2) Diabetes mellitus, type 2 Status: Chronic Qualifiers: Diabetes mellitus complication status: D Diabetes mellitus complication detail: D Diabetic retinopathy severity: D Proliferative retinopathy type: P Diabetes mellitus macular edema: D Diabetes mellitus terminal manager insulin use : D Laterality: L Chronic kidney disease stage: C Plan: ssi, po hydration with water (3) GERD (gastroesophageal reflux disease) Status: Chronic Qualifiers: Esophagitis presence: with esophagitis Qualified Code(s): K21.0 - Gastro- esophageal reflux disease with esophagitis (4) Sarcoidosis Status: Chronic Plan: pain control holding methotrexate
[2016-09-13] MEDS: REGLAN TAB 10 MG PO SCH (16:30)
[2016-09-13] MEDS: DEMEROL INJ IVP PRN ×2 (17:41→21:28)
[2016-09-13 20:12] LABS: CREATININE 1.15 mg/dL (0.70-1.30); VANCOMYCIN,TROUGH 9.7 ug/mL (15-20)
[2016-09-13] MEDS ORDERED: COLACE CAP 100 MG PO SCH (21:00)
[2016-09-13] MEDS: LEVEMIR SC SCH (21:18)
[2016-09-13] MEDS: AMBIEN PO PRN (21:27)
[2016-09-13] MEDS: SNACK - Diabetic Appropriate PO SCH (22:43)
[2016-09-14] MEDS: CLEOCIN VIAL 600 MG 900 MG in D5W 50 ML IV 50 ML IV SCH ×2 (05:56→13:42)
[2016-09-14] MEDS: LACTINEX GRANULES PO SCH ×2 (05:59→15:05)
[2016-09-14] MEDS: HumuLIN R SUBCUT PRN ×2 (06:36→12:22)
[2016-09-14 06:51] LABS: BASOPHILS % (AUTO) 0.9 % (0.2-1.0); EOSINOPHILS # (AUTO) 0.2 x10^3/uL (0.0-0.2); HEMATOCRIT 38.4 % (42.0-54.0); HEMOGLOBIN 13.1 g/dL (13.5-18.0); LYMPHOCYTES # (AUTO) 1.4 X10^3/uL (1.3-2.9); LYMPHOCYTES % (AUTO) 33.8 % (21.0-51.0); MEAN CORPUSCULAR HEMOGLOBIN 30.4 pg (27.0-34.0); MEAN CORPUSCULAR HGB CONC 34.1 g/dL (33.0-35.0); MEAN PLATELET VOLUME 8.4 fL (7.4-11.0); MONOCYTES # (AUTO) 0.3 x10^3/uL (0.3-0.8); MONOCYTES % (AUTO) 7.8 % (0.0-13.0); NEUTROPHILS # (AUTO) 2.2 x10^3/uL (2.2-4.8); NEUTROPHILS % (AUTO) 53.5 % (42.0-75.0); PLATELET COUNT 147 X10^3/uL (150.0-450.0); RED BLOOD COUNT 4.32 X10^6/uL (4.7-6.0); RED CELL DISTRIBUTION WIDTH 14.1 % (11.6-16.5); WHITE BLOOD COUNT 4.2 X10^3/uL (3.6-10.0)
[2016-09-14 06:56] LABS: ALANINE AMINOTRANSFERASE 35 Units/L (12-78); ALBUMIN 3.2 g/dL (3.4-5.0); ALKALINE PHOSPHATASE 77 Units/L (46-116); BLOOD UREA NITROGEN 12 mg/dL (7-18); CALCIUM 8.8 mg/dL (8.5-10.1); CARBON DIOXIDE 24.1 mmol/L (21-32); CHLORIDE 104 mmol/L (98-107); COR CA(FOR HYPOALB) 9.4 mg/dL (8.5-10.1); COR NA(FOR HYPERGLY) 142 mmol/L (136-145); CREATININE 0.91 mg/dL (0.70-1.30); GLUCOSE 204 mg/dL (65-99); SODIUM 140 mmol/L (136-145); TOTAL PROTEIN 7.1 g/dL (6.4-8.2); eGFR BLACK RACES > 60 (>60); eGFR NON BLACK RACES > 60 (>60)
[2016-09-14] MEDS: MAXIPIME 2 GM in NS 100 ML IV + SPIKE MINIBAG* 100 ML IV SCH ×2 (07:19→15:06)
[2016-09-14] MEDS: DEMEROL INJ IVP PRN (07:19)
[2016-09-14] MEDS ORDERED: PHARMACY CONSULT - VANCOMYCIN XX SCH (08:00)
[2016-09-14 08:08] LABS: ASPARTATE AMINO TRANSFERASE 21 Units/L (15-37)
[2016-09-14] MEDS ORDERED: VANCOMYCIN 1 GM PREMIX (ADDVANTAGE) 250 ML IV SCH (12:00)
[2016-09-14 14:00] VITALS: BP 108/58
[2016-09-14] MEDS ORDERED: GENTAMICIN TOPICAL CRM TOP SCH (14:00)
== END 2016-09-14 15:20 | disposition home or self-care (01) | DRG 603 ==
LOC: MED/SURG 17:30
PROVIDERS: ADMIT Internal Medicine; ATTEND Internal Medicine
DX: L03.211 Cellulitis of face (principal); B95.62 Methicillin resistant Staphylococcus aureus infection as the cause of diseases classified elsewhere; R51 Headache; E03.8 Other specified hypothyroidism; R11.2 Nausea with vomiting, unspecified; D86.89 Sarcoidosis of other sites; K21.0 Gastro-esophageal reflux disease with esophagitis; E11.65 Type 2 diabetes mellitus with hyperglycemia; I10 Essential (primary) hypertension
CPT/HCPCS: 36415; 70487; 80053; 80202; 81001; 82565; 85025; 87040; 87070; 87075; 87077; 87186; A4222; Q0177; S0077; 1956; J0692; J0696; J1815; J1956; J2175; J2270; J2543; J3370

== ENCOUNTER 2022-01-07 16:41 | Observation (INO) ==
--- NOTE | 2022-01-07 17:38 | DR.H&P ---
H&P - History & Physical for Day of: H&P Date: 01/07/22 - Chief Complaint Chief Complaint: SYNCOPE, "DIZZINESS" "CANNOT KEEP BALANCE" - History of Present Illness History of Present Illness: PT IS 56 WM DIRECT ADMIT FROM DR BOLAÑOS OFFICE AFT ER PRESENTING WITH CO SYNCOPE THIS AM X 1 AND INTRACTABLE DIZZINESS. PT WAS SEEN IN ER [facility] ER EARLIER TODAY, HAD CT HEAD WO ACUTE CVA AND LABS. PT FAMILY REPORTS HE CANT KEEP HIS BALANCE AND COULD NOT DRIVE. PT HAS PMH OF DM, HTN, SARCOIDOSIS, HYPOTHYROIDISM, AND OA. PT ADMITTED FOR EVALUATION AND TREATMENT OF ACUTE ILLNESS. - Past Medical History Past Medical History: Arthritis, Diabetes, Dyslipidemia, GERD, Hypothyroidism Additional Medical History: sarcoidosis - Past Surgical History Surgical History: Abdominal Surgery - Family History Family Medical History: Diabetes Mellitus, Cancer - Social History Does patient currently use any type of tobacco product: Yes Type of Tobacco Use: Smokeless Does any household member use tobacco: No Alcohol Use: None Drug Use: None Prescription drug monitoring program results: PDMP reviewed and no concerns identified - Medications Home Medications: No Known Drug Allergies Allergy (Verified 12/20/21 17:31) - Review of Systems Constitutional: Weakness, Malaise, Other (DIZZINESS) Eyes: No Symptoms Reported ENT: No Symptoms Reported Respiratory: SOB with Excertion Cardiovascular: Edema Genitourinary: No Symptoms Reported Musculoskeletal: Back Pain, Neck Pain Skin: No Symptoms Reported Neurological: Other (DIZZINESS, UNSTEADY GAIT) - Physical Exam Vital Signs: Temperature 97.9 F Pulse Rate [Bilateral] 60 Respiratory Rate 20 Blood Pressure [Left Arm] 141/78 Blood Pressure [Right Arm] 118/78 Blood Pressure 167/81 O2 Sat by Pulse Oximetry 100 Oriented: Normal Eyes: Normal Ear: Normal Nose: Normal Throat: Normal Respiratory: RLL Diminished, LLL Diminished Cardiovascular: Normal, Edema (+1 BILATERAL LOWER EXTREMITIES) Palpation: Normal Tenderness: Normal Skin: Normal Musculoskeletal: Back:Lumbar Psychiatric: Anxiety Mood Description: Sad (PT CRYING DURING EXAM) Affect: Anxious Speech Pattern: Clear, Appropriate - Assessment/Plan (1) Syncope Status: Acute Plan: ADMIT, CT HEAD AND CXR OBTAINED IN ER. STRICT I&OS, BP CONTROL. BS CONTROL, FLP, SERIAL EKG AND CE. VERIFY HOME MEDICATION. ECHO AND CAROTID ARTERY US, STATIN THERAPY. SUPPLMENTAL O2 PRN (2) Hyperlipemia Status: Acute (3) Hypothyroid Status: Acute (4) Diabetes mellitus type 2, uncontrolled Status: Chronic (5) GERD (gastroesophageal reflux disease) Qualifiers: Esophagitis presence: with esophagitis Status: Chronic (6) Sarcoidosis Status: Chronic - Allergies Allergies/Adverse Reactions: Allergies Allergy/AdvReac Type Severity Reaction Status Date / Time No Known Drug Allergies Allergy Verified 12/20/21 17:31
[2022-01-07 17:40] VITALS: BMI 34.4
[2022-01-07] MEDS ORDERED: MICRO K EXTEN CAP 10 MEQ PO SCH (18:00)
[2022-01-07] MEDS ORDERED: LASIX IVP SCH (18:00)
[2022-01-07 18:01] LABS: MAGNESIUM 1.5 mg/dL (1.7-2.9)
[2022-01-07] MEDS: NS 1,000 ML IV 1,000 ML IV SCH (18:21)
[2022-01-07] MEDS: PROTONIX INJ 40 MG VIAL IVP SCH (18:21)
[2022-01-07 19:29] LABS: BILIRUBIN,URINE NEGATIVE (NEGATIVE); BLOOD/HEMOGLOBIN,URINE NEGATIVE (NEGATIVE); GLUCOSE, URINE NEGATIVE (NEGATIVE); KETONES,URINE NEGATIVE (NEGATIVE); LEUKOCYTE ESTERASE ,URINE NEGATIVE (NEGATIVE); NITRITES,URINE NEGATIVE (NEGATIVE); PROTEIN,URINE NEGATIVE (NEGATIVE); UROBILINOGEN,URINE NORMAL (NORMAL)
[2022-01-07 19:33] LABS: APPEARANCE,URINE CLEAR (CLEAR); COLOR,URINE YELLOW (YELLOW)
[2022-01-07] MEDS: ZETIA TAB 10 MG PO SCH (20:28)
[2022-01-07] MEDS: TRICOR TAB 160 MG PO SCH (20:28)
[2022-01-07] MEDS: SNACK - Diabetic Appropriate PO SCH (20:28)
[2022-01-07] MEDS: TOUJEO SOLOSTAR PEN SC SCH (20:35)
[2022-01-07] MEDS: NORCO 10/325 TAB PO PRN (20:47)
[2022-01-07] MEDS ORDERED: MORPHINE SULFATE INJ 2 MG INJ IVP ONE (23:26)
[2022-01-08 05:55] LABS: BASOPHILS % (AUTO) 0.9 % (0.2-1.0); EOSINOPHILS # (AUTO) 0.2 x10^3/uL (0.0-0.2); EOSINOPHILS % (AUTO) 5.9 % (0.9-2.9); HEMOGLOBIN 12.3 g/dL (13.5-18.0); LYMPHOCYTES # (AUTO) 1.3 X10^3/uL (1.3-2.9); LYMPHOCYTES % (AUTO) 38.3 % (21.0-51.0); MEAN CORPUSCULAR HEMOGLOBIN 31.7 pg (27.0-34.0); MEAN CORPUSCULAR HGB CONC 35.1 g/dL (33.0-35.0); MEAN CORPUSCULAR VOLUME 90.3 fL (80.0-100.0); MEAN PLATELET VOLUME 8.6 fL (7.4-11.0); MONOCYTES # (AUTO) 0.3 x10^3/uL (0.3-0.8); MONOCYTES % (AUTO) 8.1 % (0.0-13.0); NEUTROPHILS # (AUTO) 1.6 x10^3/uL (2.2-4.8); NEUTROPHILS % (AUTO) 46.8 % (42.0-75.0); RED BLOOD COUNT 3.87 X10^6/uL (4.7-6.0); RED CELL DISTRIBUTION WIDTH 13.3 % (11.6-16.5); WHITE BLOOD COUNT 3.5 X10^3/uL (3.6-10.0)
[2022-01-08 06:09] LABS: ALANINE AMINOTRANSFERASE 38 Units/L (12-78); ALBUMIN 3.5 g/dL (3.4-5.0); ALKALINE PHOSPHATASE 53 Units/L (46-116); ASPARTATE AMINO TRANSFERASE 30 Units/L (15-37); BLOOD UREA NITROGEN 14 mg/dL (7-18); CALCIUM 7.9 mg/dL (8.5-10.1); CARBON DIOXIDE 26.7 mmol/L (21-32); CHLORIDE 104 mmol/L (98-107); CHOL/HDL RATIO 3.2 (0.0-5.0); CHOLESTEROL 112 mg/dL (0-200); COR NA(FOR HYPERGLY) 140 mmol/L (136-145); CREATINE KINASE 104 Units/L (39-308); CREATININE 0.97 mg/dL (0.70-1.30); HDL CHOLESTEROL 35 mg/dL (40-60); SODIUM 139 mmol/L (136-145); TOTAL PROTEIN 6.4 g/dL (6.4-8.2); TRIGLYCERIDES 155 mg/dL (0-150); eGFR NON BLACK RACES > 60 (>60)
[2022-01-08] MEDS ORDERED: K-DUR TAB 20 MEQ PO PRN (07:19)
[2022-01-08] MEDS ORDERED: POTASSIUM CHL 60 MEQ/NS 0.45% 500 ML IV PRN (07:19)
[2022-01-08] MEDS ORDERED: MICRO K EXTEN CAP 10 MEQ PO PRN (07:19)
[2022-01-08] MEDS ORDERED: K-RIDER 10 MEQ/NS 100 ML 10 MEQ/100 ML BAG IV PRN (07:19)
[2022-01-08] MEDS ORDERED: POTASSIUM CHLORIDE LIQ 20 MEQ UDC PO PRN (07:19)
[2022-01-08] MEDS ORDERED: KLOR-CON PO PRN (07:19)
[2022-01-08] MEDS ORDERED: POTASSIUM CHL 40 MEQ/NS 0.45% 500 ML IV PRN (07:19)
[2022-01-08] MEDS: NORCO 10/325 TAB PO PRN ×3 (08:41→22:26)
[2022-01-08] MEDS: MAGNESIUM SULFATE 1 GRAM/100 mL PREMIX 1 G/100 ML BAG IV PRN ×2 (08:42→11:00)
[2022-01-08] MEDS: LIPITOR TAB 40 MG PO SCH (08:42)
[2022-01-08] MEDS: PROTONIX INJ 40 MG VIAL IVP SCH (08:43)
[2022-01-08] MEDS: MILK OF MAGNESIA PO SCH ×2 (08:54→21:30)
[2022-01-08] MEDS: COLACE CAP 100 MG PO SCH ×3 (08:54→21:30)
[2022-01-08] MEDS: TYLENOL 325 MG TAB PO PRN (11:01)
--- NOTE | 2022-01-08 14:15 | RAD ---
HISTORYCHF vertigoSTUDYPortable AP [id number]/[id number] size remains upper-normal with essentially clear lungs except for a small area of linear atelectasis adjacent to the left hilum. There is no evidence for pneumonia or CHF.IMPRESSIONInterval development of subsegmental parahilar atelectasis. No change otherwise.Electronically signed by: JAMISON MENDIOLA (Jan 08, 2022 14:13:05)
--- NOTE | 2022-01-08 14:34 | VAS ---
HISTORY: Concern for carotid artery stenosis. Dizziness.EXAM: BILATERAL DOPPLER CAROTID ULTRASOUND EXAMTechnique: Multiple de la paz scale and color flow Doppler images of the right and left carotid arterial system were obtained.The vertebral arterial system was evaluated as well.Findings:Nonocclusive color flow Doppler is seen throughout the right and left carotid arterial system.No hemodynamically significant carotid arterial stenosis is seen based on velocity criteria. There is mild bilateral carotid atherosclerosis and soft plaque formation of the bilateral carotid bulbs and ICAs with associated intimal thickening but [without] evidence for high-grade stenosis (>70%) or occlusion of the carotid arteries. The right and left vertebral artery demonstrate antegrade flow.IMPRESSION:Mild bilateral carotid atherosclerosis and soft plaque formation of the bilateral carotid bulbs and [in both] ICAs with associated carotid intimal thickening but without evidence for high-grade stenosis or occlusion of the carotid arteries, based on Doppler velocity criteria.Appropriate, antegrade, vertebral arterial flow.Peak right ICA velocity: 62 centimeter/seconds.Peak right CCA velocity: 66 centimeter/seconds.Peak left ICA velocity: 85 centimeter/seconds.Peak left CCA velocity: 83 centimeter/seconds.Right ICA to CCA ratio: 1.6.Left ICA to CCA ratio: 1.6.Electronically signed by: PHYLLIS PAEZ III (Jan 08, 2022 14:32:38)
[2022-01-08] MEDS ORDERED: ROCEPHIN VIAL 1 GRAM 1 G in NS 100 ML IV 100 ML IV SCH (17:30)
[2022-01-08 17:35] LABS: AMYLASE 40 Units/L (25-115); LIPASE 96 Units/L (73-393)
[2022-01-08] MEDS ORDERED: K-DUR TAB 20 MEQ PO ONE (18:00)
[2022-01-08] MEDS ORDERED: LASIX IVP ONE (18:00)
[2022-01-08] MEDS: ZESTRIL TAB 5 MG PO SCH (18:13)
[2022-01-08] MEDS: NS 1,000 ML IV 1,000 ML IV SCH (18:14)
[2022-01-08] MEDS: ANTIVERT TAB 25 MG PO SCH ×2 (18:14→21:25)
[2022-01-08] MEDS: SNACK - Diabetic Appropriate PO SCH (21:24)
[2022-01-08] MEDS: ZETIA TAB 10 MG PO SCH (21:25)
[2022-01-08] MEDS: TRICOR TAB 160 MG PO SCH (21:25)
[2022-01-08] MEDS: TOUJEO SOLOSTAR PEN SC SCH (21:25)
[2022-01-08] MEDS ORDERED: MORPHINE SULFATE INJ 2 MG INJ IVP ONE (23:08)
--- NOTE | 2022-01-08 23:16 | RAD ---
HISTORYLeft lateral abdominal painSTUDYACUTE ABDOMEN SERIESCOMPARISONNone availableTECHNIQUEAP supine and upright abdominal radiographs with chest radiography, 4 images.FINDINGSGas and stool in non distended colon.Gas in scattered loops of non-distended small bowel.No gross free air.No abnormal calcifications.No acute osseous abnormality.Lungs are clear of focal airspace disease.No cardiomegaly.No pneumothorax.No pleural effusion.IMPRESSIONGas in scattered loops of nondistended small bowel could represent a nonspecific enteritis or ileus.Electronically signed by: Cliff Castellanos (Jan 08, 2022 23:14:43)
[2022-01-09] MEDS: ANTIVERT TAB 25 MG PO SCH (05:12)
[2022-01-09 06:29] LABS: BASOPHILS % (AUTO) 0.9 % (0.2-1.0); EOSINOPHILS # (AUTO) 0.2 x10^3/uL (0.0-0.2); EOSINOPHILS % (AUTO) 4.7 % (0.9-2.9); HEMOGLOBIN 14.1 g/dL (13.5-18.0); LYMPHOCYTES # (AUTO) 1.3 X10^3/uL (1.3-2.9); LYMPHOCYTES % (AUTO) 31.4 % (21.0-51.0); MEAN CORPUSCULAR HGB CONC 35.1 g/dL (33.0-35.0); MEAN PLATELET VOLUME 8.6 fL (7.4-11.0); MONOCYTES # (AUTO) 0.3 x10^3/uL (0.3-0.8); MONOCYTES % (AUTO) 8.4 % (0.0-13.0); NEUTROPHILS # (AUTO) 2.2 x10^3/uL (2.2-4.8); NEUTROPHILS % (AUTO) 54.6 % (42.0-75.0); RED CELL DISTRIBUTION WIDTH 13.4 % (11.6-16.5)
[2022-01-09 06:46] LABS: ALANINE AMINOTRANSFERASE 62 Units/L (12-78); ALKALINE PHOSPHATASE 62 Units/L (46-116); ASPARTATE AMINO TRANSFERASE 42 Units/L (15-37); BLOOD UREA NITROGEN 10 mg/dL (7-18); CALCIUM 8.3 mg/dL (8.5-10.1); CHLORIDE 102 mmol/L (98-107); COR NA(FOR HYPERGLY) 140 mmol/L (136-145); MAGNESIUM 2.5 mg/dL (1.7-2.9); SODIUM 139 mmol/L (136-145); TOTAL PROTEIN 7.5 g/dL (6.4-8.2); eGFR NON BLACK RACES > 60 (>60)
[2022-01-09] MEDS: PROTONIX INJ 40 MG VIAL IVP SCH (09:30)
[2022-01-09] MEDS: LIPITOR TAB 40 MG PO SCH (09:30)
[2022-01-09] MEDS: COLACE CAP 100 MG PO SCH (09:35)
[2022-01-09] MEDS: MILK OF MAGNESIA PO SCH ×2 (12:09→21:30)
[2022-01-09] MEDS: NORCO 10/325 TAB PO PRN (12:14)
[2022-01-09] MEDS: ZYVOX 600MG IV 600 MG/300 ML BAG IV SCH ×2 (12:14→21:30)
[2022-01-09] MEDS: ZESTRIL TAB 5 MG PO SCH (14:32)
[2022-01-09] MEDS: TYLENOL 325 MG TAB PO PRN (16:18)
[2022-01-09] MEDS: NS 1,000 ML IV 1,000 ML IV SCH (19:00)
[2022-01-09] MEDS ORDERED: ULTRAM PO PRN (19:47)
[2022-01-09] MEDS ORDERED: RESTORIL CAP 15 MG PO PRN (19:47)
[2022-01-09] MEDS: SNACK - Diabetic Appropriate PO SCH (21:00)
[2022-01-09] MEDS: TRICOR TAB 160 MG PO SCH (21:30)
[2022-01-09] MEDS: ZETIA TAB 10 MG PO SCH (21:30)
[2022-01-09] MEDS: TOUJEO SOLOSTAR PEN SC SCH (21:30)
[2022-01-09] MEDS ORDERED: MORPHINE SULFATE INJ 2 MG INJ IVP PRN (23:43)
[2022-01-09] MEDS: MORPHINE SULFATE INJ 2 MG INJ IVP PRN (23:49)
[2022-01-10 06:22] LABS: ALANINE AMINOTRANSFERASE 52 Units/L (12-78); ALBUMIN 3.7 g/dL (3.4-5.0); ALKALINE PHOSPHATASE 60 Units/L (46-116); ASPARTATE AMINO TRANSFERASE 32 Units/L (15-37); BLOOD UREA NITROGEN 13 mg/dL (7-18); CARBON DIOXIDE 29.2 mmol/L (21-32); CHLORIDE 103 mmol/L (98-107); COR NA(FOR HYPERGLY) 139 mmol/L (136-145); CREATININE 1.05 mg/dL (0.70-1.30); SODIUM 138 mmol/L (136-145); TOTAL PROTEIN 6.9 g/dL (6.4-8.2); eGFR NON BLACK RACES > 60 (>60)
[2022-01-10 06:29] LABS: BASOPHILS % (AUTO) 0.9 % (0.2-1.0); EOSINOPHILS # (AUTO) 0.2 x10^3/uL (0.0-0.2); EOSINOPHILS % (AUTO) 5.4 % (0.9-2.9); HEMATOCRIT 38.8 % (42.0-54.0); HEMOGLOBIN 13.3 g/dL (13.5-18.0); LYMPHOCYTES # (AUTO) 1.2 X10^3/uL (1.3-2.9); LYMPHOCYTES % (AUTO) 36.4 % (21.0-51.0); MEAN CORPUSCULAR HEMOGLOBIN 31.3 pg (27.0-34.0); MEAN CORPUSCULAR HGB CONC 34.2 g/dL (33.0-35.0); MEAN CORPUSCULAR VOLUME 91.4 fL (80.0-100.0); MEAN PLATELET VOLUME 8.7 fL (7.4-11.0); MONOCYTES # (AUTO) 0.3 x10^3/uL (0.3-0.8); MONOCYTES % (AUTO) 9.3 % (0.0-13.0); NEUTROPHILS # (AUTO) 1.6 x10^3/uL (2.2-4.8); RED BLOOD COUNT 4.25 X10^6/uL (4.7-6.0); RED CELL DISTRIBUTION WIDTH 13.3 % (11.6-16.5); WHITE BLOOD COUNT 3.4 X10^3/uL (3.6-10.0)
[2022-01-10] MEDS: MORPHINE SULFATE INJ 2 MG INJ IVP PRN (07:05)
[2022-01-10] MEDS: PROTONIX INJ 40 MG VIAL IVP SCH (08:44)
[2022-01-10] MEDS: ZESTRIL TAB 5 MG PO SCH (08:46)
[2022-01-10] MEDS: LIPITOR TAB 40 MG PO SCH (08:46)
[2022-01-10] MEDS: COLACE CAP 100 MG PO SCH (08:51)
[2022-01-10] MEDS: ZYVOX 600MG IV 600 MG/300 ML BAG IV SCH (08:51)
[2022-01-10] MEDS: MILK OF MAGNESIA PO SCH (08:52)
[2022-01-10] MEDS ORDERED: SOLU-Medrol 40 MG VIAL IVP ONE (09:08)
[2022-01-10 11:41] VITALS: BP 122/74
[2022-01-10] MEDS ORDERED: NovoLIN R (or HumuLIN R) SC PRN (11:58)
== END 2022-01-10 16:30 | disposition home or self-care (01) ==
LOC: MED/SURG
PROVIDERS: ADMIT Internal Medicine; ATTEND Internal Medicine
DX: N39.0 Urinary tract infection, site not specified; R42 Dizziness and giddiness; I10 Essential (primary) hypertension; R55 Syncope and collapse; B95.1 Streptococcus, group B, as the cause of diseases classified elsewhere; E11.65 Type 2 diabetes mellitus with hyperglycemia; K21.9 Gastro-esophageal reflux disease without esophagitis; M19.90 Unspecified osteoarthritis, unspecified site; R10.84 Generalized abdominal pain; Z20.822 Contact with and (suspected) exposure to COVID-19; R00.1 Bradycardia, unspecified; I73.89 Other specified peripheral vascular diseases; D86.89 Sarcoidosis of other sites; E03.8 Other specified hypothyroidism

== ENCOUNTER 2022-12-11 11:52 | Inpatient (IN) ==
[2022-12-11 13:28] VITALS: BMI 15.2
[2022-12-11 14:31] LABS: BASOPHILS # (AUTO) 0.1 X10^3/uL (0.0-0.1); BASOPHILS % (AUTO) 1.3 % (0.2-1.0); EOSINOPHILS # (AUTO) 0.2 x10^3/uL (0.0-0.2); EOSINOPHILS % (AUTO) 4.8 % (0.9-2.9); HEMATOCRIT 43.7 % (42.0-54.0); HEMOGLOBIN 14.8 g/dL (13.5-18.0); LYMPHOCYTES # (AUTO) 1.1 X10^3/uL (1.3-2.9); LYMPHOCYTES % (AUTO) 23.2 % (21.0-51.0); MEAN CORPUSCULAR HEMOGLOBIN 31.2 pg (27.0-34.0); MEAN CORPUSCULAR HGB CONC 33.9 g/dL (33.0-35.0); MEAN CORPUSCULAR VOLUME 92.1 fL (80.0-100.0); MEAN PLATELET VOLUME 8.6 fL (7.4-11.0); MONOCYTES # (AUTO) 0.4 x10^3/uL (0.3-0.8); MONOCYTES % (AUTO) 8.1 % (0.0-13.0); NEUTROPHILS # (AUTO) 2.9 x10^3/uL (2.2-4.8); NEUTROPHILS % (AUTO) 62.6 % (42.0-75.0); PLATELET COUNT 184 X10^3/uL (150.0-450.0); RED BLOOD COUNT 4.74 X10^6/uL (4.7-6.0); RED CELL DISTRIBUTION WIDTH 13.5 % (11.6-16.5); WHITE BLOOD COUNT 4.6 X10^3/uL (3.6-10.0)
[2022-12-11] MEDS: NS 1,000 ML IV 1,000 ML IV SCH (14:39)
[2022-12-11] MEDS: MORPHINE SULFATE INJ 2 MG INJ IVP PRN ×2 (15:11→22:06)
[2022-12-11 15:15] LABS: ALANINE AMINOTRANSFERASE 42 Units/L (12-78); ALBUMIN 3.9 g/dL (3.4-5.0); ALKALINE PHOSPHATASE 98 Units/L (46-116); ASPARTATE AMINO TRANSFERASE 32 Units/L (15-37); BLOOD UREA NITROGEN 28 mg/dL (7-18); CALCIUM 9.5 mg/dL (8.5-10.1); CHLORIDE 97 mmol/L (98-107); COR NA(FOR HYPERGLY) 136 mmol/L (136-145); CREATININE 1.54 mg/dL (0.70-1.30); GLUCOSE 344 mg/dL (65-99); POTASSIUM 4.8 mmol/L (3.5-5.1); SODIUM 130 mmol/L (136-145); TOTAL PROTEIN 7.5 g/dL (6.4-8.2); eGFR NON BLACK RACES 50 (>60)
--- NOTE | 2022-12-11 15:28 | CT ---
HISTORYstepped on rachel nail, pain to mid footSTUDYLOWER EXT W/O CONCOMPARISONNone availableTECHNIQUEMultiple axial images of the right foot without the administration of IV contrast. Dose reduction techniques including Automated Exposure Control (AEC) and adjustment of mA and kV were utilized.FINDINGSNo fracture. No dislocation minimal degenerative changes at the 1st metatarsophalangeal joint. Chronic osteophyte irregularity at the lateral and medial malleoli. Chronic 4 millimeter loose body in the posterior aspect of the ankle joint space and loose body at the anterior aspect of the ankle joint space measuring up to 8 millimeter. Small calcaneal spurs. No focal collection or subcutaneous gas. No suspicious radiopaque foreign body. Wound site not identified. No osseous destruction.IMPRESSIONMild degenerative changes evident in the right ankle as above. No fracture. No subcutaneous gas. No obvious focal collection on this noncontrast study. No findings to suggest osteomyelitis, the wound entry site is not identified.Electronically signed by: Oscar Goldman (Dec 11, 2022 15:27:41)
[2022-12-11 15:34] LABS: CARBON DIOXIDE 23.7 mmol/L (21-32)
[2022-12-11] MEDS ORDERED: HYDROCODONE ACETAMINOPHEN PO SCH (18:00)
--- NOTE | 2022-12-11 18:02 | DR.H&P ---
H&P - History & Physical for Day of: H&P Date: 12/11/22 - Chief Complaint Chief Complaint: INFECTED SORE OF RIGHT FOOT - History of Present Illness History of Present Illness: PT IS 57 WF, DIRECT ADMIT FROM DR BOLAÑOS OFFICE AFTER PRESENTING WITH CO ER FOLLOW UP. PT STEPPED ON A NAIL THIS PAST WEEK. PT WAS UP TO DATE WITH TETANUS SHOT. PT STATES HE WAS STARTED ON PO BACTRIM AT THAT TIME. PT CO SEVERE PAIN, REDNESS AND SWELLING TO PUNCTURE WOUND TO SOLE OF RIGHT FOOT. PT IS NON-CONTROLLED DIABETIC. PT ADMITTED FOR TREATMENT OF ACUTE ILLNESS. - Past Medical History Past Medical History: Hypertension, Dyslipidemia, Diabetes, Hypothyroidism, GERD, Arthritis Additional Medical History: sarcoidosis - Past Surgical History Surgical History: Abdominal Surgery - Family History Family Medical History: Diabetes Mellitus - Social History Does patient currently use any type of tobacco product: Yes Have you used tobacco products in the last 12 months: Yes Type of Tobacco Use: Smokeless Does any household member use tobacco: No Alcohol Use: None Drug Use: None - Review of Systems Constitutional: Sweats, Malaise Eyes: No Symptoms Reported ENT: No Symptoms Reported Respiratory: No Symptoms Reported Cardiovascular: No Symptoms Reported Gastrointestinal: Nausea Genitourinary: Frequency Musculoskeletal: Back Pain, Foot Pain Skin: Wound Neurological: No Symptoms Reported - Physical Exam Vital Signs: Vital Signs Temperature 97.8 F Temperature 98.2 F Pulse Rate [Left] 66 Pulse Rate [Left] 85 Respiratory Rate 20 Respiratory Rate 18 Respiratory Rate 18 Respiratory Rate 18 Blood Pressure [Right Arm] 115/66 Blood Pressure [Right Arm] 132/78 O2 Sat by Pulse Oximetry 97 O2 Sat by Pulse Oximetry 97 Oriented: Normal Eyes: Normal Ear: Normal Nose: Normal Throat: Normal Respiratory: Clear Throughout Cardiovascular: Normal : Normal Auscultation: Bowel Sounds: Normal Palpation: Normal Tenderness: Normal Skin: Red, Tender, Hot, Wound (PUNCTURE WOUND TO RIGHT FOOT PLANTAR ASPECT ) Musculoskeletal: Back:Thoracic, Back:Lumbar Psychiatric: Anxiety Affect: Anxious, Depressed Speech Pattern: Clear, Appropriate - Assessment/Plan (1) Cellulitis of right foot Status: Acute Plan: ADMIT, WOUND CULTURE OBTAINED IN ER REVIEWED. BLOOD CULTURES. IV LEVAQUIN, IV HYDRATION. BS CONTROL, VERIFY HOME MEDICATIONS. CT RIGHT FOOT. WOUND CARE (2) Hypothyroid Status: Acute (3) Diabetes mellitus type 2, uncontrolled Status: Chronic (4) GERD (gastroesophageal reflux disease) Qualifiers: Esophagitis presence: with esophagitis Status: Chronic - Allergies Allergies/Adverse Reactions: Allergies Allergy/AdvReac Type Severity Reaction Status Date / Time No Known Drug Allergies Allergy Verified 12/20/21 17:31 - Medications Home Medications: Home Medications Medication Instructions Recorded Confirmed insulin glargine U-300 conc 300 20 unit SUBCUT HS 04/05/16 12/11/22 unit/mL (1.5 mL) subcutaneous pen (TouDocker SoloStar U-300 Insulin) aspirin 81 mg tablet,delayed 81 mg PO DAILY 12/11/22 12/11/22 release empagliflozin 12.5 mg-metformin ER 1 tab PO BID 12/11/22 12/11/22 1,000 mg tablet,extended rel 24 hr (Synjardy XR) gabapentin 300 mg capsule 300 mg PO 1-3XD PRN 12/11/22 12/11/22 lisinopril 5 mg tablet 5 mg PO HS 12/11/22 12/11/22 omeprazole 20 mg capsule,delayed 20 mg PO BID 12/11/22 12/11/22 release ropinirole 1 mg tablet 1 mg PO TID 12/11/22 12/11/22 Previous Rx's Medication Instructions Recorded cyclobenzaprine 10 mg tablet 10 mg PO TID PRN #30 tabs 08/28/20 atorvastatin 40 mg tablet 40 mg PO DAILY 01/10/22 ezetimibe 10 mg tablet 10 mg PO HS 01/10/22 fenofibrate 160 mg tablet 160 mg PO HS 01/10/22 hydrocodone 7.5 mg-acetaminophen 1 tab PO BID PRN 5 days #10 tabs 12/08/22 300 mg tablet
[2022-12-11] MEDS: LEVAQUIN PREMIX IV 500 MG 500 MG/100 ML BAG IV SCH (18:23)
[2022-12-11] MEDS: NEURONTIN CAP 300 MG PO SCH ×2 (18:23→21:26)
[2022-12-11] MEDS: BACTROBAN TOPICAL OINT TOP SCH ×2 (18:24→21:26)
[2022-12-11] MEDS ORDERED: BETADINE SOLN ONE (18:54)
[2022-12-11] MEDS: SNACK - Diabetic Appropriate PO SCH (20:00)
[2022-12-11] MEDS: ZETIA TAB 10 MG PO SCH (21:09)
[2022-12-11] MEDS: PriLOSEC PO SCH (21:09)
[2022-12-11] MEDS: ZESTRIL TAB 5 MG PO SCH (21:09)
[2022-12-11] MEDS: TRICOR TAB 160 MG PO SCH (21:09)
[2022-12-11] MEDS: NORCO 7.5/325 MG TAB PO SCH (21:10)
[2022-12-11] MEDS: TOUJEO SOLOSTAR PEN SC SCH (21:26)
[2022-12-11] MEDS: REQUIP PO SCH (21:26)
[2022-12-12] MEDS: NORCO 7.5/325 MG TAB PO SCH ×4 (03:24→21:12)
[2022-12-12] MEDS: NS 1,000 ML IV 1,000 ML IV SCH ×2 (04:06→19:07)
[2022-12-12] MEDS: BACTROBAN TOPICAL OINT TOP SCH ×3 (05:08→21:15)
[2022-12-12] MEDS: NEURONTIN CAP 300 MG PO SCH ×3 (05:10→21:15)
[2022-12-12] MEDS: REQUIP PO SCH ×3 (05:10→21:15)
[2022-12-12] MEDS ORDERED: NovoLIN R (or HumuLIN R) ONE ×2 (05:56→06:06)
[2022-12-12] MEDS: NovoLIN R (or HumuLIN R) SUBCUT PRN ×3 (05:57→17:18)
[2022-12-12 06:57] LABS: BASOPHILS % (AUTO) 0.9 % (0.2-1.0); EOSINOPHILS # (AUTO) 0.2 x10^3/uL (0.0-0.2); EOSINOPHILS % (AUTO) 5.6 % (0.9-2.9); HEMATOCRIT 40.5 % (42.0-54.0); HEMOGLOBIN 13.8 g/dL (13.5-18.0); LYMPHOCYTES # (AUTO) 1.3 X10^3/uL (1.3-2.9); LYMPHOCYTES % (AUTO) 31.2 % (21.0-51.0); MEAN CORPUSCULAR HEMOGLOBIN 31.5 pg (27.0-34.0); MEAN CORPUSCULAR VOLUME 92.7 fL (80.0-100.0); MEAN PLATELET VOLUME 8.5 fL (7.4-11.0); MONOCYTES # (AUTO) 0.5 x10^3/uL (0.3-0.8); MONOCYTES % (AUTO) 10.9 % (0.0-13.0); NEUTROPHILS # (AUTO) 2.2 x10^3/uL (2.2-4.8); NEUTROPHILS % (AUTO) 51.4 % (42.0-75.0); PLATELET COUNT 178 X10^3/uL (150.0-450.0); RED BLOOD COUNT 4.37 X10^6/uL (4.7-6.0); RED CELL DISTRIBUTION WIDTH 13.3 % (11.6-16.5); WHITE BLOOD COUNT 4.3 X10^3/uL (3.6-10.0)
[2022-12-12 07:16] LABS: ALANINE AMINOTRANSFERASE 41 Units/L (12-78); ALBUMIN 3.5 g/dL (3.4-5.0); ALKALINE PHOSPHATASE 87 Units/L (46-116); ASPARTATE AMINO TRANSFERASE 41 Units/L (15-37); BLOOD UREA NITROGEN 23 mg/dL (7-18); CALCIUM 8.8 mg/dL (8.5-10.1); CARBON DIOXIDE 26.6 mmol/L (21-32); CHLORIDE 97 mmol/L (98-107); COR NA(FOR HYPERGLY) 134 mmol/L (136-145); CREATININE 1.32 mg/dL (0.70-1.30); GLUCOSE 192 mg/dL (65-99); POTASSIUM 4.6 mmol/L (3.5-5.1); SODIUM 132 mmol/L (136-145); TOTAL PROTEIN 6.9 g/dL (6.4-8.2); eGFR NON BLACK RACES 60 (>60)
[2022-12-12] MEDS: LEVAQUIN PREMIX IV 500 MG 500 MG/100 ML BAG IV SCH (10:04)
[2022-12-12] MEDS: PriLOSEC PO SCH ×2 (10:04→21:17)
[2022-12-12] MEDS ORDERED: NS IRRIGATION* 500 ML IR ONE ×2 (11:08→20:01)
[2022-12-12] MEDS: MORPHINE SULFATE INJ 2 MG INJ IVP PRN ×2 (14:08→19:56)
--- NOTE | 2022-12-12 18:04 | PCM.PROG ---
Progress Note - Progress Note for Day of Date of Exam: 12/12/22 - Subjective Subjective: PT IS 57 WF, DIRECT ADMIT FROM DR BOLAÑOS OFFICE AFTER PRESENTING WITH CO ER FOLLOW UP. PT STEPPED ON A NAIL THIS PAST WEEK. PT WAS UP TO DATE WITH TETANUS SHOT. PT STATES HE WAS STARTED ON PO BACTRIM AT THAT TIME. PT CO SEVERE PAIN, REDNESS AND SWELLING TO PUNCTURE WOUND TO SOLE OF RIGHT FOOT. PT IS NON-CONTROLLED DIABETIC. PT ADMITTED FOR TREATMENT OF ACUTE ILLNESS. PTS CULTURE WAS REPEATED ON ADMISSION. WE STARTED HIM ON IV LEVAQUIN BASED ON CULTURE FROM ER ON 12/08. PT HAD CT OF RLE NEGATIVE FOR OSTEOMYELITIS OR ABSCESS FORMATION. - Past Medical Family Social History Past Med/Fam/Surg Hx: No changes since H&P Allergies: Allergies No Known Drug Allergies Allergy (Verified 12/20/21 17:31) - Review of Systems ROS: No change since H&P - Vital Signs and I&O's Vital Signs: Vital Signs Temperature 97.5 F Temperature 97.5 F Pulse Rate [Left] 57 Pulse Rate [Left] 60 Respiratory Rate 20 Respiratory Rate 20 Respiratory Rate 20 Respiratory Rate 20 Respiratory Rate 20 Respiratory Rate 20 Respiratory Rate 20 Respiratory Rate 20 Blood Pressure [Right Arm] 106/63 Blood Pressure [Right Arm] 107/73 O2 Sat by Pulse Oximetry 97 O2 Sat by Pulse Oximetry 97 Intake and Output: Intake & Output 12/10/22 12/11/22 12/12/22 12/13/22 11:59 11:59 11:59 11:59 Intake Total 1884 / 1884 1509 / 1509 Output Total 0 / 0 Balance 1884 / 1884 1509 / 1509 - Physical Exam Oriented: Normal Eyes: Normal Ear: Normal Nose: Normal Throat: Normal Cardiovascular: Normal : Normal Auscultation: Bowel Sounds: Normal Tenderness: Normal Skin: Red, Tender, Hot, Wound (PUNCTURE WOUND TO RIGHT FOOT PLANTAR ASPECT ) Musculoskeletal: Back:Thoracic, Back:Lumbar Psychiatric: Anxiety Affect: Anxious, Depressed Speech Pattern: Clear, Appropriate - Laboratory and Diagnostics Result Diagrams: 12/12/22 05:12 12/12/22 05:12 Labs: 12/11/22 15:40 Foot - Right Wound Culture - Preliminary Laboratory WBC 4.3 X10^3/uL (3.6-10.0) 12/12/22 05:12 RBC 4.37 X10^6/uL (4.7-6.0) L 12/12/22 05:12 Hgb 13.8 g/dL (13.5-18.0) 12/12/22 05:12 Hct 40.5 % (42.0-54.0) L 12/12/22 05:12 MCV 92.7 fL (80.0-100.0) 12/12/22 05:12 MCH 31.5 pg (27.0-34.0) 12/12/22 05:12 MCHC 34.0 g/dL (33.0-35.0) 12/12/22 05:12 RDW 13.3 % (11.6-16.5) 12/12/22 05:12 Plt Count 178 X10^3/uL (150.0-450.0) 12/12/22 05:12 MPV 8.5 fL (7.4-11.0) 12/12/22 05:12 Neut % (Auto) 51.4 % (42.0-75.0) 12/12/22 05:12 Lymph % (Auto) 31.2 % (21.0-51.0) 12/12/22 05:12 [place] % (Auto) 10.9 % (0.0-13.0) 12/12/22 05:12 Eos % (Auto) 5.6 % (0.9-2.9) H 12/12/22 05:12 Baso % (Auto) 0.9 % (0.2-1.0) 12/12/22 05:12 Neut # (Auto) 2.2 x10^3/uL (2.2-4.8) 12/12/22 05:12 Lymph # (Auto) 1.3 X10^3/uL (1.3-2.9) 12/12/22 05:12 [place] # (Auto) 0.5 x10^3/uL (0.3-0.8) 12/12/22 05:12 Eos # (Auto) 0.2 x10^3/uL (0.0-0.2) 12/12/22 05:12 Baso # (Auto) 0.0 X10^3/uL (0.0-0.1) 12/12/22 05:12 Absolute Nucleated RBC 0.2 /100WBC 12/12/22 05:12 Sodium 132 mmol/L (136-145) L 12/12/22 05:12 Corrected Sodium 134 mmol/L (136-145) L 12/12/22 05:12 Potassium 4.6 mmol/L (3.5-5.1) 12/12/22 05:12 Chloride 97 mmol/L (98-107) L 12/12/22 05:12 Carbon Dioxide 26.6 mmol/L (21-32) 12/12/22 05:12 BUN 23 mg/dL (7-18) H 12/12/22 05:12 Creatinine 1.32 mg/dL (0.70-1.30) H 12/12/22 05:12 Est GFR (MDRD) Af Amer > 60 (>60) 12/12/22 05:12 Est GFR (MDRD) Non-Af 60 (>60) 12/12/22 05:12 Glucose 192 mg/dL (65-99) H 12/12/22 05:12 POC Glucose (mg/dL) 236 mg/dL (65-99) H 12/12/22 16:43 Calcium 8.8 mg/dL (8.5-10.1) 12/12/22 05:12 Corrected Calcium TNP 12/12/22 05:12 Total Bilirubin 0.40 mg/dL (0.2-1.0) 12/12/22 05:12 AST 41 Units/L (15-37) H 12/12/22 05:12 ALT 41 Units/L (12-78) 12/12/22 05:12 Alkaline Phosphatase 87 Units/L (46-116) 12/12/22 05:12 Total Protein 6.9 g/dL (6.4-8.2) 12/12/22 05:12 Albumin 3.5 g/dL (3.4-5.0) 12/12/22 05:12 Globulin 3.4 g/dL (2.5-4.5) 12/12/22 05:12 Albumin/Globulin Ratio 1.0 Ratio (1.1-2.1) L 12/12/22 05:12 - Plan (1) Cellulitis of right foot Status: Acute Plan: ADMIT, WOUND CULTURE OBTAINED IN ER REVIEWED. BLOOD CULTURES. IV LEVAQUIN, IV HYDRATION. BS CONTROL, VERIFY HOME MEDICATIONS. CT RIGHT FOOT. WOUND CARE (2) Hypothyroid Status: Acute (3) Diabetes mellitus type 2, uncontrolled Status: Chronic (4) GERD (gastroesophageal reflux disease) Status: Chronic Qualifiers: Esophagitis presence: with esophagitis
[2022-12-12] MEDS: SNACK - Diabetic Appropriate PO SCH (21:14)
[2022-12-12] MEDS: ZESTRIL TAB 5 MG PO SCH (21:14)
[2022-12-12] MEDS: TRICOR TAB 160 MG PO SCH (21:15)
[2022-12-12] MEDS: TOUJEO SOLOSTAR PEN SC SCH (21:16)
[2022-12-12] MEDS: ZETIA TAB 10 MG PO SCH (21:16)
[2022-12-13] MEDS: NORCO 7.5/325 MG TAB PO SCH ×2 (02:28→11:06)
[2022-12-13] MEDS: REQUIP PO SCH (05:35)
[2022-12-13] MEDS: NEURONTIN CAP 300 MG PO SCH (05:35)
[2022-12-13] MEDS: BACTROBAN TOPICAL OINT TOP SCH (05:35)
[2022-12-13 06:09] LABS: BASOPHILS % (AUTO) 0.8 % (0.2-1.0); EOSINOPHILS # (AUTO) 0.2 x10^3/uL (0.0-0.2); EOSINOPHILS % (AUTO) 6.9 % (0.9-2.9); HEMATOCRIT 38.2 % (42.0-54.0); HEMOGLOBIN 13.2 g/dL (13.5-18.0); LYMPHOCYTES # (AUTO) 1.3 X10^3/uL (1.3-2.9); LYMPHOCYTES % (AUTO) 37.5 % (21.0-51.0); MEAN CORPUSCULAR HEMOGLOBIN 31.5 pg (27.0-34.0); MEAN CORPUSCULAR HGB CONC 34.7 g/dL (33.0-35.0); MEAN CORPUSCULAR VOLUME 90.9 fL (80.0-100.0); MEAN PLATELET VOLUME 8.2 fL (7.4-11.0); MONOCYTES # (AUTO) 0.4 x10^3/uL (0.3-0.8); MONOCYTES % (AUTO) 10.4 % (0.0-13.0); NEUTROPHILS # (AUTO) 1.6 x10^3/uL (2.2-4.8); NEUTROPHILS % (AUTO) 44.4 % (42.0-75.0); PLATELET COUNT 161 X10^3/uL (150.0-450.0); RED CELL DISTRIBUTION WIDTH 13.4 % (11.6-16.5); WHITE BLOOD COUNT 3.6 X10^3/uL (3.6-10.0)
[2022-12-13 06:34] LABS: ALANINE AMINOTRANSFERASE 45 Units/L (12-78); ALBUMIN 3.4 g/dL (3.4-5.0); ALKALINE PHOSPHATASE 72 Units/L (46-116); ASPARTATE AMINO TRANSFERASE 48 Units/L (15-37); BLOOD UREA NITROGEN 19 mg/dL (7-18); CALCIUM 8.2 mg/dL (8.5-10.1); CARBON DIOXIDE 28.1 mmol/L (21-32); CHLORIDE 98 mmol/L (98-107); COR NA(FOR HYPERGLY) 134 mmol/L (136-145); GLUCOSE 187 mg/dL (65-99); POTASSIUM 4.5 mmol/L (3.5-5.1); SODIUM 132 mmol/L (136-145); TOTAL PROTEIN 6.5 g/dL (6.4-8.2); eGFR NON BLACK RACES > 60 (>60)
[2022-12-13 07:50] VITALS: BP 108/69; PULSE 69; TEMP 97.6; O2SAT 98
[2022-12-13] MEDS ORDERED: NS IRRIGATION* 500 ML IR ONE ×2 (09:40→10:25)
[2022-12-13] MEDS ORDERED: BETADINE SOLN TOP ONE (10:25)
[2022-12-13] MEDS: NS 1,000 ML IV 1,000 ML IV SCH (11:06)
[2022-12-13] MEDS: LEVAQUIN PREMIX IV 500 MG 500 MG/100 ML BAG IV SCH (11:06)
[2022-12-13 11:07] VITALS: RESP 18
[2022-12-13] MEDS: PriLOSEC PO SCH (11:07)
== END 2022-12-13 11:10 | disposition home or self-care (01) | DRG 603 ==
LOC: MED/SURG 12:43
PROVIDERS: ADMIT Internal Medicine; ATTEND Internal Medicine
DX: W45.0XXA Nail entering through skin, initial encounter; I10 Essential (primary) hypertension; K21.9 Gastro-esophageal reflux disease without esophagitis; L03.115 Cellulitis of right lower limb; E03.8 Other specified hypothyroidism; B95.2 Enterococcus as the cause of diseases classified elsewhere; E11.65 Type 2 diabetes mellitus with hyperglycemia; E78.2 Mixed hyperlipidemia; Y93.01 Activity, walking, marching and hiking; B95.1 Streptococcus, group B, as the cause of diseases classified elsewhere